=== PATIENT | male | born 1965 | race Caucasian/White ===

== ENCOUNTER 2020-05-27 08:53 | Emergency (ER) | payer BC, SELFPAY ==
--- NOTE | ~2020-05-27 | XR_ITS ---
EXAMINATION: XR ankle LT min 3V, XR foot LT min 3V EXAM DATE: 05/27/2020 09:17 INDICATION: Initial encounter following injury, with pain of the left foot and ankle. TECHNIQUE: Left foot dorsoplantar, lateral and oblique projections obtained and reviewed. Left ankle frontal, lateral and oblique projections obtained and reviewed. There is no prior study for compari son. FINDINGS: Left metatarsal bones unremarkable. The left ankle mortise appears intact. Possible acut e closed posttraumatic fracture of the calcaneal beak identified on the lateral projection. This find ing has been indicated, marked on the examination for review, clinical correlation. There is no subc utaneous gas. The soft tissue is unremarkable. There are no radiopaque foreign bodies. IMPRESSION: 1. Possible left calcaneal beak avulsion fracture. Reviewed, dictated and finalized at location B. IMPRESSION: 1. Possible left calcaneal beak avulsion fracture.
[2020-05-27 08:59] VITALS: BP 140/80; PULSE 72; RESP 18; TEMP 36.7; O2SAT 97
--- NOTE | 2020-05-27 09:36 | ED.LOWEXIN ---
HPI - Extremity Injury (Lower) General Chief Complaint: Extremity Injury, Lower Stated Complaint: left ankle injury Time Seen by Provider: 05/27/20 09:28 Source: patient and RN notes reviewed Mode of arrival: ambulatory Limitations: no limitations History of Present Illness HPI Narrative: Patient presents today complaining of an injury to his left ankle and foot. He was stepping from his boat to the boat dock last night, hyperflexing his ankle and falling. Currently rates his pain 6/10. He has been using ice and Tylenol with mild relief. Denies numbness or tingling in the leg or foot. Pain increases with weightBearing. MD complaint: ankle injury Related Data Home Medications Medication Instructions Recorded Confirmed No Home Medications 05/27/20 05/27/20 Allergies Allergy/AdvReac Type Severity Reaction Status Date / Time No Known Allergies Allergy Verified 05/27/20 09:01 Review of Systems Review of Systems: Narrative: CONSTITUTIONAL: Denies body aches, fever, chills, or sweats. EYES: Denies visual changes, redness, or discharge. ENT: Denies rhinorrhea, congestion, sore throat, or otalgia. CARDIOVASCULAR: Denies chest pain, palpitations, or edema. RESPIRATORY: Denies cough or dyspnea. GASTROINTESTINAL: Denies abdominal pain, nausea, vomiting, or diarrhea. GENITOURINARY: Denies dysuria or hematuria. SKIN: Denies rash, itching, or wounds. MUSCULOSKELETAL: Denies back pain. +Left foot and ankle pain NEUROLOGIC: Denies headache, numbness, tingling, or weakness. PSYCH: Denies depression or anxiety. PMFSH Past Medical History Medical History (Updated 05/27/20 @ 09:43 by Micki Tubbs, COMMERCIAL INSURANCE UNDERWRITER, ) Chronic bronchitis Colonoscopy planned 2009 Family History Family History (Updated 01/05/20 @ 06:45 by Clarita Isaac CMA) Father Acute myocardial infarction Social History Social History (Updated 01/05/20 @ 06:45 by Clarita Isaac CMA) Smoking status: Never smoker Alcohol intake: current Comments At time of signature, I have reviewed and agree with nursing past medical, surgical, social and family history unless otherwise noted. Please see nursing chart for further information. There is no relevant family history pertinent to the presenting complaint Exam Narrative: Exam Narrative: GENERAL: Well-appearing, well-nourished, and in no acute distress. HEAD: Normocephalic, atraumatic. EYES: EOMI. No redness or drainage. Conjunctivae normal. ENT: Mucous membranes pink and moist. NECK: Normal AROM. CHEST: No respiratory distress. EXTREMITIES: Left ankle and foot:Tenderness to the anterior ankle and anterior proximal foot. Mild swelling about the foot. Distal sensation intact. Capillary refill normal. Pedal pulse normal. Full AROM of the toes. Limited AROM of the ankle due to pain. SKIN: Warm, dry, no rash. Capillary refill normal. Normal skin turgor. NEURO: No focal deficits. Alert and oriented x3. Gait steady. PSYCH: Normal affect. No signs of depression or anxiety. Course Vital Signs Vital signs: Vital Signs Temperature 98.1 F 05/27/20 08:59 Pulse Rate 72 05/27/20 08:59 Respiratory Rate 18 05/27/20 08:59 Blood Pressure 140/80 05/27/20 08:59 Pulse Oximetry 97 05/27/20 08:59 Temperature 98.1 F 05/27/20 08:59 Pulse Rate 72 05/27/20 08:59 Respiratory Rate 18 05/27/20 08:59 Blood Pressure 140/80 05/27/20 08:59 Pulse Oximetry 97 05/27/20 08:59 Reviewed. Pt has been instructed to follow up with his PCP regarding his elevated blood pressure today. Procedures Orthopedic Splinting/Casting Injury #1: Splinting/Casting Date: 05/27/20 Splinting/Casting Time: 09:43 Side: left Lower Extremity Injury Location: ankle Lower Extremity Immobilizer: posterior splint Splint: customized in ED OCL: posterior Pre-Procedure Neuro Vascular Exam: normal Post-Procedure Neuro Vascular Exam: normal Ot
--- NOTE | 2020-05-27 10:35 | PC.NURSE ---
PT TAKEN TO RADIOLOGY IN WHEELCHAIR
== END 2020-05-27 10:11 | disposition home or self-care (01) ==
PROVIDERS: Emergency Provider Nurse Practitioner
DX: S92.035A Nondisplaced avulsion fracture of tuberosity of left calcaneus, initial encounter for closed fracture (principal); X50.9XXA Other and unspecified overexertion or strenuous movements or postures, initial encounter; W18.39XA Other fall on same level, initial encounter
CPT/HCPCS: 29515; 73610; 73630; 99214; G0463

== ENCOUNTER 2025-02-24 13:55 | Outpatient (CLI) | payer BC, SELFPAY ==
--- NOTE | ~2025-02-24 | XR_ITS ---
EXAMINATION: XR chest 2V 02/24/2025 14:05 INDICATION: Hyperhidrosis PROCEDURE: 2 view chest COMPARISON: 10/08/2014 FINDINGS: The lungs are clear. The cardiomediastinal silhouette is within normal limits. There are no pleural effusions. There is no pneumothorax suspected. IMPRESSION: 1: NO ACUTE CARDIOPULMONARY DISEASE. Reviewed, dictated and finalized at location A.
== END 2025-02-24 13:56 | disposition home or self-care (01) ==
PROVIDERS: PCP Nurse Practitioner; Visit Provider Nurse Practitioner
DX: R61 Generalized hyperhidrosis (principal)
CPT/HCPCS: 71046

== ENCOUNTER 2025-03-11 08:13 | Outpatient (CLI) | payer BC, SELFPAY ==
--- NOTE | ~2025-03-11 | CT_ITS ---
Clinical Indication: Hyperhidrosis CT Scan of the Chest, Abdomen, and Pelvis with Contrast: Technique: Contiguous sections were acquired throughout the chest, abdomen, and pelvis after intraven ous administration of 100 cc of Omnipaque 350. Dose reduction technique was used on this scan by festus silveiraing automated exposure control and iterative reconstruction technique. The dose-length product (DL P) was 1255.24 mGy-cm. Findings: There is no evidence of any significant mediastinal, hilar or axillary lymphadenopathy. The mediastin al soft tissues and vascular structures appear normal. There is no evidence of pleural or pericardial effusion. The lungs are clear. No pulmonary nodules or infiltrates are noted. There is diffuse hepatic steatosis. The spleen, pancreas, gallbladder, adrenals and kidneys are withi n normal limits. No evidence of aortic aneurysm. No lymphadenopathy. No bowel obstruction or bowel wall thickening. There is no evidence to suggest acute appendicitis. Urinary bladder is unremarkable. No pelvic mass seen. No ascites. Impression: No acute abnormalities seen. Diffuse hepatic steatosis. Reviewed, dictated and finalized at [facility]. Impression: No acute abnormalities seen. Diffuse hepatic steatosis.
--- OUTSIDE RECORDS SUMMARY | 2025-03-11 08:20 | XMS_ITS | Referral Summary ---
Author Organization [email or web address] Address [address] [place] [address] Care Team Providers Care Weasand Trimmer Name Role Phone Rickie Johnston DO Primary Care Provider + [phone] Ezio Mares MD Unavailable [phone] Kirit Mitchell MD Unavailable [phone] Encounters Date Type Department Care Team Description 01/28/2025 11:03 AM TRIAGE RN - 01/28/2025 11:59 PM TRIAGE RN Hospital Encounter [facility] Orthopedics and Sports Medicine [address] [place] [phone] Discharge Disposition: Discharge to home or self care 01/28/2025 11:00 AM TRIAGE RN Office Visit [facility] Medical [facility] Orthopedics and Sports Medicine [address] [place] [phone] Faviola Porras PA Primary osteoarthritis of right knee (Primary Dx) from Last 3 Months Allergies No known active allergies Medications meloxicam (MOBIC) 15 mg tablet Take 1 tablet (15 mg total) by mouth daily 30 tablet 2 4 Active atorvastatin (LIPITOR) 20 mg tablet Take 1 tablet (20 mg total) by mouth nightly at bedtime 4 Active HYDROcodone-xavi taminophen (NORCO) 5-325 mg per tabletIndicatio ns:Pain Take 1-2 tablets by mouth every 4 (four) hours as needed for pain 30 tablet 4 Active Additional Information Patient not taking.Reported on 01/28/2025 Active Problems Problem Noted Date Diagnosed Date 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 Overview (07/26/2022): Added automatically from request for surgery [id number] Family history of coronary artery disease 2013 Overview (03/08/2017): Family history of premature CAD Adiposity 10/12/2014 Overview (03/08/2017): Obesity Chest pain 10/12/2014 Overview (03/08/2017): Chest pain Resolved Problems Problem Noted Date Diagnosed Date Resolved Date Internal derangement of right knee 11/12/2024 11/30/2024 Acute medial meniscus tear of right knee 11/12/2024 11/30/2024 Primary osteoarthritis of right knee 07/29/2024 11/30/2024 Social History Tobacco Use Types Packs/Day Years Used Date Smoking Tobacco: Never Passive Smoke Exposure: Never Smokeless Tobacco: Current Snuff Tobacco Cessation:Ready to Q uit: Not Asked; Counseling Given: Not Answered Alcohol Use Standard Drinks/Week Comments Yes 0 (1 standard drink = 0.6 oz pur e alcohol) AUDIT-C Answer Date Recorded Q1: How often do you have a drink containing alc ohol? 2-4 times a month 11/13/2024 Q2: How many drinks containi ng alcohol do you have on a typical day when you are drinking? 1 or 2 11/13/2024 Q3: How often do you have si x or more drinks on one occasion? Monthly 11/13/2024 Personal Safety Answer Date Recorded Have you ever been in or are you currently in a harmful physical or emotional relationship or is someone making you feel afraid or unsafe? Denies 11/16/2024 Sex and Gender Information Value Date Recorded Sex Assigned at Not on file Legal Sex Male 1:18 AM TRIAGE RN Gender Identity Not on file Sexual Orientation Not on file Last Filed Vital Signs Vital Sign Reading Time Taken Comments Blood Pressure 139/83 01/28/2025 10:58 AM TRIAGE RN Pulse 64 01/28/2025 10:58 AM TRIAGE RN Temperature 35.9 C (96.6 F) 11/16/2024 9:24 AM TRIAGE RN Respiratory Rate 20 11/16/2024 10:4 5 AM TRIAGE RN Oxygen Saturation 95% 11/16/2024 10: 45 AM TRIAGE RN Inhaled Oxygen Concentration - - Weight 112.2 kg (247 lb 6.4 oz) 025 10:58 AM TRIAGE RN Height 181.6 cm (5' 11.5 ) 01/28/2025 1 0:58 AM TRIAGE RN Body Mass Index 34.02 01/28/2025 10:58 AM TRIAGE RN Plan of Treatment Not on file Medical Devices Implanted Type Area Charge Auditor Device Identifier Shelf Expiration Date Model / Serial / Lot Cr Craniomaxillofacial Impl Soft Tissue [id number] Moist Tough Flex Sheet Enduragen [id number] - [id number] Implanted:Qty: 1 on 08/27/2022 by Jerzy Tavera MD at [facility] Left: Eyelid Cr Craniomaxillofacial 08/31/2026 [id number] / / [id number] Procedures Procedure Name Priority Date/Time Associated Diagnosis Comments XR KNEE RIGHT 4 OR MORE VIEWS Schedule Routine, Read Routine (OP Routine) 01/28/2025 11:22 AM TRIAGE RN Primary osteoarthritis of right knee DC ARTHROCENTESIS ASPIR&/INJ MAJOR JT/BURSA W/O US Routine 01/28/2025 11:00 AM TRIAGE RN Primary osteoarthritis of right knee from Last 3 Months Results * XR Knee Right 4 or More Views (01/28/2025 11:22 AM TRIAGE RN) Anatomical Region Laterality Modality Lower Extremities, Knee Right Digital Radiography Narrative 01/28/2025 11:22 AM TRIAGE RN Radiographs taken of the right knee today reveal moderate degenerative changes with subchondral sclerosis, osteophyte formation, and diminished medial joint space. us Faviola BUTTS IMG XR PROCEDURES Fin al Result * DC ARTHROCENTESIS ASPIR&/INJ MAJOR JT/BURSA W/O US (01/28/2025 11:00 AM TRIAGE RN) Narrative Kirit Mitchell MD - 01/28/2025 11:00 AM TRIAGE RN Kirit Mitchell MD 01/28/2025 11:44 AM Large Joint (Hip, Knee, Shoulder) Injection: R knee Performed by: Faviola Porras PA Authorized by: Faviola Porras PA Large Joint Injection/Aspiration: Consent Given by: Patient Site marked: the procedure site was marked Timeout: prior to procedure the correct patient, procedure, and site was verified Verbal consent obtained: Yes Supporting Documentation: Indications: Pain Procedure Details: Location: Knee Site: R knee Needle Size: 22 G Approach: Anterolateral Ultrasound guided: No Fluroscopic guidance: No Medications: 80 mg methylPREDNISolone acetate 80 mg/mL; 3 mL lidocaine 20 mg/mL (2 %) Patient tolerance: Patient tolerated the procedure well with no immediate complications Result [facility] Faviola BUTTS IN CLINIC/BEDSIDE ORD ERABLES Final Result from Last 3 Months Insurance Spling ME Spling ME Care Teams Weasand Trimmer Relationship Specialty Start Date End Date Rickie Johnston DO PCP - General Internal Medicine 10/05/21 Ezio Mares MD Referring Physician Dermatology 07/25/22 Kirit Mitchell MD [address] [place] [address] [place] [address] Surgeon Orthopedic Surgery 11/16/24
--- OUTSIDE RECORDS SUMMARY | 2025-03-11 08:20 | XMS_ITS | Clinical Summary ---
Author Organization [facility] [employer] [facility] Address [address] [place] [address] Care Team Providers Care Solution Make Up Operator Name Role Phone Rickie Johnston DO Primary Care Provider [phone] Ezio Mares MD Unavailable [phone] Kirit Mitchell MD Unavailable [phone] Allergies No known active allergies Medications meloxicam [...] (07/26/2022): Added automatically from request for surgery [id number] Family history of coronary artery disease 2013 Overview (03/08/2017): Family history of premature CAD Adiposity 10/12/2014 Overview (03/08/2017): Obesity Chest pain 10/12/2014 Overview (03/08/2017): Chest pain Resolved Problems Problem Noted Date Diagnosed Date Resolved Date Internal derangement of right knee 11/12/2024 11/30/2024 Acute medial meniscus tear of right knee 11/12/2024 11/30/2024 Primary osteoarthritis of right knee 07/29/2024 11/30/2024 Encounters Date Type Department Care Team Description 01/28/2025 11:03 AM BARREL MARKER - 01/28/2025 11:59 PM BARREL MARKER Hospital Encounter [facility] Medical [facility] Orthopedics and Sports Medicine [address] [place] [address] [address] [place] [phone] Discharge Disposition: Discharge to home or self care 01/28/2025 11:00 AM BARREL MARKER Office Visit [facility] Orthopedics and Sports Medicine [address] [place] [address] [address] [place] [phone] Faviola Porras PA Primary osteoarthritis of right knee (Primary Dx) from Last 3 Months Surgical History Surgery Date Site/Laterality Comments COLONOSCOPY EYE SURGERY 08/27/2022 Left S/P LEFT LOWER EYELID RECONSTRUCTION for squamous cell ca LLL MOHS SURGERY Left basal cell carcinoma- nose Medical History Medical History Date Comments Squamous cell cancer of skin of eyelid, left HLD (hyperlipidemia) Family History Medical History Relation Name Comments Diabetes type II Father Diabetes -T ype II; Cause of : Diabetes -Type II Heart attack Father Myocardial infa rction; Glaucoma Mother Other Mother Alive and well; Anesthesia problems Neg Hx Cancer Neg Hx Diabetes Neg Hx Macular degeneration Neg Hx Strabismus Neg Hx Thyroid disease Neg Hx Relation Name Status Comments Father Mother Alive Social History Tobacco Use Types Packs/Day Years [...] on file Legal Sex Male 1:18 AM BARREL MARKER Gender Identity Not on file Sexual Orientation Not on file Obstetrics History Last Filed Vital Signs Vital Sign Reading Time Taken Comments Blood Pressure 139/83 01/28/2025 10:58 AM BARREL MARKER Pulse 64 01/28/2025 10:58 AM BARREL MARKER Temperature 35.9 C (96.6 F) 11/16/2024 9:24 AM BARREL MARKER Respiratory Rate 20 11/16/2024 10:4 5 AM BARREL MARKER Oxygen Saturation 95% 11/16/2024 10: 45 AM BARREL MARKER Inhaled Oxygen Concentration - - Weight 112.2 kg (247 lb 6.4 oz) 025 10:58 AM BARREL MARKER Height 181.6 cm (5' 11.5 ) 01/28/2025 1 0:58 AM BARREL MARKER Body Mass Index 34.02 01/28/2025 10:58 AM BARREL MARKER Plan of Treatment Health Maintenance Due Date Last Done Comments Colon Cancer Screening-Colonoscopy 1965 Depression Screening 1965 Hepatitis C Screening 1965 Prostate Cancer Screening-PSA 1965 DTaP/Tdap/Td Vaccine (1 - Tdap) 1976 Hepatitis B Screening 1983 Regular Well Visit/Exam 18-64 1983 Zoster Vaccine (1 of 2) 2015 Influenza Vaccine (#1) 2024 Pneumococcal vaccine <65 Aged Out No longer eligible based on patient's age to complete this topic Medical Devices Implanted Type Area Transit Department Clerk Device Identifier Shelf Expiration Date Model / Serial / Lot Cr Craniomaxillofacial Impl Soft Tissue [id number] Moist Tough Flex Sheet Enduragen [id number] - [id number] Implanted:Qty: 1 on 08/27/2022 by Jerzy Tavera MD at [facility] Medicine Left: Eyelid Cr Craniomaxillofacial 08/31/2026 [id number] / / [id number] Procedures Procedure Name Priority Date/Time Associated Diagnosis Comments XR KNEE RIGHT 4 OR MORE VIEWS Schedule Routine, Read Routine (OP Routine) 01/28/2025 11:22 AM BARREL MARKER Primary osteoarthritis of right knee NE ARTHROCENTESIS ASPIR&/INJ MAJOR JT/BURSA W/O US Routine 01/28/2025 11:00 AM BARREL MARKER Primary osteoarthritis of right knee from Last 3 Months Results * XR Knee Right 4 or More Views (01/28/2025 11:22 AM BARREL MARKER) Anatomical Region Laterality Modality Lower Extremities, Knee Right Digital Radiography Narrative 01/28/2025 11:22 AM BARREL MARKER Radiographs taken of the right knee today reveal moderate degenerative changes with subchondral sclerosis, osteophyte formation, and diminished medial joint space. Faviola BUTTS IMG XR PROCEDURES Fin al Result * NE ARTHROCENTESIS ASPIR&/INJ MAJOR JT/BURSA W/O US (01/28/2025 11:00 AM BARREL MARKER) Narrative Kirit Mitchell MD - 01/28/2025 11:00 AM BARREL MARKER Kirit Mitchell MD 01/28/2025 11:44 AM Large [...] the procedure well with no immediate complications Faviola BUTTS IN CLINIC/BEDSIDE ORD ERABLES Final Result from Last 3 Months Insurance [employer] [place] [employer] [place] Care Teams Solution Make Up Operator Relationship Specialty Start Date End Date Rickie Johnston DO PCP - General Internal Medicine 10/05/21 Ezio Mares MD Referring Physician Dermatology 07/25/22 Kirit Mitchell MD [address] [place] [address] [place] [address] Surgeon Orthopedic Surgery 11/16/24
--- OUTSIDE RECORDS SUMMARY | 2025-03-11 08:20 | XMS_ITS | Clinical Summary ---
Author Organization [facility] [email or web address] Address [address] [place] [address] Care Team Providers Care It Operations Analyst Name Role Phone Rickie Johnston DO Primary Care Provider [phone] Source Comments [facility] [email or web address],non-owned Affiliates and Associated Physician Practices is amultiple site organization consisting of ambulatory clinics and hospital sitesin [place], [place], [place] and [place]. This disclosure is being madepursuant to the Care Everywhere program and may not contain all information available regarding this patient. Last updated [email or web address] Allergies No known active allergies Medications Be aware that medications may not be up to date on this document. Always verify current medications with the patient. No known medications Social History Tobacco Use Types Packs/Day Years Used Date Smoking Tobacco: Never Smokeless Tobacco: Current Sex and Gender Information Value Date Recorded Sex Assigned at Not on file Gender Identity Not on file Sexual Orientation Not on file Last Filed Vital Signs Vital Sign Reading Time Taken Comments Blood Pressure 118/82 01/15/2018 11:52 AM PROJECT MANAGER PROCESS DEVELOPMENT Pulse 71 01/15/2018 11:52 AM PROJECT MANAGER PROCESS DEVELOPMENT Temperature 36.7 C (98.1 F) 01/15/2018 11:52 AM PROJECT MANAGER PROCESS DEVELOPMENT Respiratory Rate 16 01/15/2018 11:52 AM PROJECT MANAGER PROCESS DEVELOPMENT Oxygen Saturation 98% 01/15/2018 11:52 AM PROJECT MANAGER PROCESS DEVELOPMENT Inhaled Oxygen Concentration - - Weight 97.1 kg (214 lb) 01/15/2018 11:52 AM PROJECT MANAGER PROCESS DEVELOPMENT Height 182.9 cm (6') 01/15/2018 11:52 AM PROJECT MANAGER PROCESS DEVELOPMENT Body Mass Index 29.02 01/15/2018 11:52 AM PROJECT MANAGER PROCESS DEVELOPMENT Plan of Treatment Health Maintenance Due Date Last Done Comments FITZ (AGES 45-75) - COL ON CA SCREENING 1965 COLON MONITORING 1965 COLONOSCOPY - COLON CA SCREENING 1965 CT COLONOGRAPHY - COLON CA SCREENING 1965 Colorectal Cancer Screening 1965 FIT - COLON CA SCREENING 1965 FLEX SIG - COLON CA SCREENING 1965 LIPID TESTING 1965 HIV SCREENING 1980 HEPATITIS C SCREENING 07/19/1983 DTAP/TDAP/TD VACCINES (1 - Tdap) 1984 HEPATITIS B VACCINE (1 of 3 - 19+ 3-dose series) 1984 PNEUMOCOCCAL VACCINE 50+ (1 of 1 - PCV) 2015 ZOSTER VACCINE (1 of 2) 2015 SCREENING FOR DIABETES 01/15/2018 COVID-19 VACCINE ( - 2023-2 5 season) 2024 DEPRESSION SCREENING 12/02/2024 INFLUENZA VACCINE (Season Ended) 2025 HIB VACCINE Aged Out No longer eligi ble based on patient's age to complete this topic HPV VACCINE Aged Out No longer eligi ble based on patient's age to complete this topic MENINGOCOCCAL (Group B) VACC INE SHARED DECISION-MAKING Aged Out No longer eligibl e based on patient's age to complete this topic MENINGOCOCCAL GROUPS A/C/Y/W VACCINE Aged Out No longer eligible b ased on patient's age to complete this topic PNEUMOCOCCAL VACCINE Aged Out No long er eligible based on patient's age to complete this topic Care Teams It Operations Analyst Relationship Specialty Start Date End Date Rickie Johnston DO PCP - General Internal Medicine 01/15/18
[2025-03-11 08:39] LABS: Estimated Glomerular Filt Rate > 60
== END 2025-03-11 08:14 | disposition home or self-care (01) ==
PROVIDERS: PCP Nurse Practitioner; Visit Provider Nurse Practitioner
DX: R61 Generalized hyperhidrosis (principal); K76.0 Fatty (change of) liver, not elsewhere classified; R53.83 Other fatigue
CPT/HCPCS: 71260; 74177; Q9967